=== PATIENT | female | born 1950 | race Caucasian/White ===

== ENCOUNTER 2016-05-21 22:01 | Emergency (ER) | payer MEDICARE ==
[~2016-05-21] VITALS: Ht 165.1 cm; Wt 82.4 kg
[2016-05-21 22:14] VITALS: BP 184/142; PULSE 104; RESP 20; TEMP 98.1
[2016-05-21] MEDS ORDERED: SILVER NITR/POTASSIUM NITRATE APPLICATORS TOPICAL ONE (22:45)
--- NOTE | 2016-05-21 22:45 | PD ---
HPI Chief Complaint: Nosebleed Time Seen by Provider: 22:44 Travel History International Travel<30 days: No Contact w/Intl Traveler<30days: No Traveled to known affect area: No History of Present Illness HPI 65-year-old female presents to the emergency department for sudden onset epistaxis from the right nostril just prior to arrival to the emergency department. Patient states that she was taking a shower and she stepped on a shard biopsy noticed blood on her hands and then noticed that she is having a nosebleed. Patient denies any trauma. No digital manipulation. Patient does have history of seasonal and environmental allergies but has not noted increased symptoms related to this condition this. Patient denies hypertension. Patient takes no blood thinning agents. No reported dizziness or syncope or syncope. No shortness of breath. No nausea or vomiting. PFSH Past Medical History Narrative Medical Environmental/seasonal allergies; tonsillectomy; tobacco use; nursing notes reviewed Diminished Hearing: No Immunizations Current: No Tetanus Vaccination: Unknown Influenza Vaccination: No ?: Not Past Surgical History Tonsillectomy: Yes Social History Alcohol Use: No Tobacco Use: Yes (1 ppd) Substance Use: No Allergies-Medications (Allergen,Severity, Reaction): Coded Allergies: No Known Allergies (Unverified , 05/21/16) Reported Meds & Prescriptions Reported Meds & Active Scripts Active No Active Prescriptions or Reported Medications Review of Systems Except as stated in HPI: all other systems reviewed are Neg General / Constitutional: No: Fever, Chills Eyes: No: Visual changes HENT: Positive: Nosebleed, No: Headaches, Congestion Cardiovascular: No: Chest Pain or Discomfort, Diaphoresis, Syncope Gastrointestinal: No: Nausea, Vomiting Genitourinary: No: Flank Pain Musculoskeletal: No: Pain Skin: No Rash Neurologic: No: Weakness Psychiatric: No: Anxiety Hematologic/Lymphatic: No: Easy Bruising Physical Exam Narrative GENERAL: Well-developed well-nourished female in no acute distress no respiratory distress with noted epistaxis. SKIN: Warm and dry. HEAD: Normocephalic. EYES: No scleral icterus. No injection or drainage. ENT: Mucous membranes moist airway is patent blood is noted down the posterior pharynx; there is fresh blood and clots in the right nostril with small area of blood noted seeping from the nasal septum with some minor injection; left nostril with scant overflow blood. NECK: Supple, trachea midline. No JVD or lymphadenopathy. CARDIOVASCULAR: Regular rate and rhythm without murmurs, gallops, or rubs. RESPIRATORY: Breath sounds equal bilaterally. No accessory muscle use. GASTROINTESTINAL: Abdomen soft, non-tender, nondistended. MUSCULOSKELETAL: No cyanosis, or edema. BACK: Nontender without obvious deformity. No CVA tenderness. Data Data Last Documented VS Vital Signs Date Time Temp Pulse Resp B/P Pulse Ox O2 Delivery O2 Flow Rate FiO2 05/21/16 23:38 77 16 135/79 98 Room Air 05/21/16 22:14 98.1 Orders Silver Nitrate Applicators (Silver Nitra (05/21/16 22:45) Oxymetazoline 0.05% [place] (Afrin 0.0 (05/21/16 23:30) MDM Medical Decision Making Medical Screen Exam Complete: Yes Emergency Medical Condition: Yes Medical Record Reviewed: Yes Differential Diagnosis Epistaxis, sinusitis, hypertension, anemia, coagulopathy Narrative Course After direct visualization of the nostrils with nasal speculum silver nitrate is used to chemically cauterize the small area of bleeding at the right nasal septum this provided some hemostasis but further bleeding was noted and a 5.5 Rhino Rocket was inserted in the right nostril with 3.5 cc of inflation. Rhino Rocket has dislodged itself; reassessment some small ongoing epistaxis additional Rhino Rocket attempted however patient intolerant of device and this was removed. Afrin nasal spray 2 sprays to the right nostril one spray to the left nostril applied. Blood pressure has returned to normal. Patient without active nosebleed at this time. Patient observed at rest as well as with ambulation about the emergency department and doing normal activities such as washing and getting in and off of the exam stretcher without recurrent epistaxis. The exam of the nostril reveals no active blood and posterior pharynx has no active clot or bleeding identified. Epistaxis is resolved and patient stable for outpatient management. Diagnosis Primary Impression: Epistaxis Referrals: Ear / Nose / Throat Specialist call for appointment Primary Care Physician call for appointment Patient Instructions: General Instructions Additional Instructions: Increase fluid hydration Avoid hot foods and beverages for the next 12-24 hours Use cool mist vaporizer at bedside May use Afrin nasal decongestant spray 1 spray to each nostril as often as twice daily for up to 2-3 days avoid overuse to avoid rebound congestion Use saline nasal spray such as [place] to each nostril to keep mucous membranes moist Apply direct pressure and return to the emergency department for recurrent nosebleeds Return to the emergency department for any concerns or change in condition May take acetaminophen/Tylenol as needed for minor discomfort or for fever 100.4 F or greater; avoid nonsteroidal anti-inflammatory medications for the next 48- 72 hours such as ibuprofen/Advil/Motrin or Aleve/Naprosyn or aspirin Scripts No Active Prescriptions or Reported Meds Disposition: 01 DISCHARGE HOME Condition: Stable Starla Orona MD May 21, 2016 22:45
[2016-05-21 22:59] VITALS: BP 147/76; PULSE 78; RESP 18; O2SAT 97
[2016-05-21] MEDS ORDERED: OXYMETAZOLINE HCL 0.05% 15 ML NASAL SPRAY NASAL ONE (23:30)
[2016-05-21 23:38] VITALS: BP 135/79; PULSE 77; RESP 16; O2SAT 98
[2016-05-22 00:22] VITALS: BP 132/77
== END 2016-05-22 00:25 | disposition home or self-care (01) ==
LOC: PHED 22:01
DX: R04.0 Epistaxis (principal); J30.2 Other seasonal allergic rhinitis; F17.200 Nicotine dependence, unspecified, uncomplicated
CPT/HCPCS: 30901

== ENCOUNTER 2016-12-07 13:47 | Emergency (ER) | payer MEDICARE, OTHER ==
[~2016-12-07] VITALS: Ht 165.1 cm; Wt 85.0 kg
[2016-12-07 13:53] VITALS: BP 163/70; PULSE 81; RESP 16; TEMP 98; O2SAT 95
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
[2016-12-07] MEDS ORDERED: ALLE4TAB7 PO (14:15)
[2016-12-07] MEDS ORDERED: FLUT1SPR5 EACH NARE (14:16)
[2016-12-07] MEDS ORDERED: NAPR500T2 PO (14:16)
[2016-12-07] MEDS ORDERED: SODIUM CHLOR 0.9% 1000 ML INJ 1,000 ML IV ONE (14:45)
[2016-12-07] MEDS ORDERED: PROPOFOL 200 MG/20 ML AMP IV ONE (14:45)
[2016-12-07 15:08] VITALS: O2SAT 94
--- NOTE | 2016-12-07 15:21 | RADRPT ---
EXAM DATE/TIME: 12/07/2016 14:17 [facility] COMPARISON: No previous studies available for comparison. INDICATIONS : Left wrist pain post fall. MEDICAL HISTORY : None. SURGICAL HISTORY : None. ENCOUNTER: Initial ACUITY: 1 day PAIN SCORE: 10/10 LOCATION: Left entire wrist FINDINGS: There is evidence of an acute displaced comminuted fracture involving the left distal radius with inv olvement of the articular surface. There is also an acute displaced ulnar styloid process fracture. Degenerative changes are noted involving the first carpometacarpal joint. Degenerative changes are also noted involving the scaphotrapezium and scaphotrapezoid joints. CONCLUSION: 1. Acute displaced comminuted fracture involving the left distal radius with involvement of the artic ular surface. 2. Acute displaced ulnar styloid process fracture. 3. Degenerative changes involving the first carpometacarpal joint as well as the scaphotrapezium and scaphotrapezoid joints. Ike Pepper MD on December 07, 2016 at 15:14 Board Certified Radiologist. This report was verified electronically.
--- NOTE | 2016-12-07 15:30 | RADRPT ---
EXAM DATE/TIME: 12/07/2016 15:13 [facility] COMPARISON: WRIST LEFT LIMITED (AP & LAT), December 07, 2016, 14:17. INDICATIONS : Post reduction left wrist fracture MEDICAL HISTORY : None. SURGICAL HISTORY : None. ENCOUNTER: Initial ACUITY: 1 day PAIN SCORE: 5/10 LOCATION: Left wrist FINDINGS: Two view examination of the left wrist demonstrates placement of a cast. Postreduction views demonstr ate persistent fracture distal radius and ulnar styloid with improved alignment. Soft tissue swelling . CONCLUSION: Improved alignment of distal radius/ulnar fractures. Mykel Mena MD on December 07, 2016 at 15:26 Board Certified Radiologist. This report was verified electronically.
[2016-12-07] MEDS ORDERED: NORC5TAB PO (15:48)
[2016-12-07 16:00] VITALS: BP 125/71
== END 2016-12-07 16:10 | disposition home or self-care (01) ==
LOC: PHED 13:47
DX: S52.592A Other fractures of lower end of left radius, initial encounter for closed fracture (principal); S52.612A Displaced fracture of left ulna styloid process, initial encounter for closed fracture; V43.94XA Unspecified car occupant injured in collision with van in traffic accident, initial encounter
CPT/HCPCS: 25605; 73100; 94770; 96361; 96374; 99285; J7030

== ENCOUNTER 2016-12-08 07:44 | Observation (INO) | payer OTHER, MEDICARE ==
[~2016-12-08] VITALS: Ht 165.1 cm; Wt 86.3 kg
[~2016-12-08 07:44] MED LIST: ALLE4TAB7 PO; FLUT1SPR5 EACH NARE; NAPR500T2 PO; NORC5TAB PO
[2016-12-08] MEDS ORDERED: ceFAZolin 2 GM PREMIX 50 ML IV SCH (09:00)
[2016-12-08] MEDS ORDERED: METOPROLOL TARTRATE 25 MG TAB PO PRN (09:00)
[2016-12-08] MEDS ORDERED: POVIDONE IODINE 5% (ANTISEPSIS KIT) 4 APPLICATIONS EACH NARE PRN (09:00)
[2016-12-08] MEDS ORDERED: SODIUM CHLORID 0.9% 500 ML IV PRN (09:00)
[2016-12-08] MEDS ORDERED: INSULIN HUMAN REGULAR 1,000 UNITS/10 ML VIAL SQ PRN (09:00)
[2016-12-08] MEDS ORDERED: CHLORHEXIDINE GLUCONATE 2 % 1 PACK (2 CLOTHS) TOPICAL PRN (09:00)
[2016-12-08] MEDS ORDERED: POVIDONE IODINE 7.5% SCRUB 118 ML BOTTLE TOPICAL SCH (09:00)
[2016-12-08] MEDS ORDERED: LACTATED RINGER'S 1000 ML IV PRN (09:00)
[2016-12-08] MEDS ORDERED: GENTAMICIN SULFATE 80 MG/2 ML VIAL ONE (09:53)
[2016-12-08] MEDS ORDERED: BUPIVACAINE/EPINEPHRINE 0.5% PF 10 ML VIAL ONE (10:42)
[2016-12-08] MEDS ORDERED: HYDROmorphone HCL PF 2 MG/ML VIAL ONE (11:29)
[2016-12-08] MEDS ORDERED: ROCURONIUM INJ 50 MG/5 ML SYRINGE IV PUSH ONE (12:00)
[2016-12-08] MEDS ORDERED: PROPOFOL 200 MG/20 ML AMP IV ONE (12:00)
[2016-12-08] MEDS ORDERED: LIDOCAINE HCL 1% PF 5 ML AMPULE OTHER ONE (12:00)
[2016-12-08] MEDS ORDERED: MIDAZOLAM HCL 2 MG/2 ML VIAL IV ONE (12:00)
[2016-12-08] MEDS: LACTATED RINGER'S 1000 ML INJ 1,000 ML IV SCH (12:46)
--- NOTE | 2016-12-08 12:49 | PD.OP ---
cc: Ortiz Flores MD Operative Report Date of Surgery: Dec 08, 2016 Preoperative Diagnosis: Fracture left distal radius, comminuted, intra-articular, 4 to 5 part Postoperative Diagnosis: Same Procedure: Open treatment internal fixation with extended volar plate left distal radius with distal and proximal locking screws Anesthesia: Gen. Surgeon: Ortiz Flores Men'S Golf Coach(s): LEONILA Smith Operation and Findings: EBL: 50 cc INDICATION: This patient is a 66-year-old female who sustained the above fracture yesterday. She has a comminuted metaphyseal and distal radius fracture involving the articular surface. Investigative studies are consistent with the same. She presents for surgical treatment. NOTE: Karuna Smith PA-C was present for the entire surgical procedure as my first dyer. In my medical opinion her skill and care was necessary for proper management of this patient. PROCEDURE: The patient was brought to the operating room and anesthetized in the supine position. This patient was positioned with the arm on the arm table. Fluoroscopy was used for visualization. A timeout was done. Antibiotics were given within 1 hour time window. The left arm was scrubbed with alcohol followed by Hibiclens followed by ChloraPrep and draped sterilely. A tourniquet was placed after exsanguination the tourniquet was inflated to 250 mmHg. A volar incision was made along the flexor carpi radialis tendon. The pronator quadratus was lifted from its radial attachment. The fracture was visualized. This was brought into a reduced position and held. A volar plate was positioned and held provisionally. Intraoperative x-ray showed anatomic alignment. Multiple distal locking screws were placed as well as shaft screws. The fracture was reduced anatomically. Intraoperative x-rays were obtained confirming the same. The tourniquet was let down. Hemostasis was controlled with the bipolar cautery. The wound was dry. The fascia was closed with 2-0 Vicryl suture. The skin and subcutaneous tissue was approximated with interrupted 3-0 nylon in a mattress fashion. A sterile dressing and a splint was applied. The patient was awakened and taken to the recovery room in satisfactory condition. COMPANY: [facility] Ortiz Flores MD Dec 08, 2016 12:49
[2016-12-08] MEDS ORDERED: DO NOT ADM ANY ANTICOAGULANT DRUGS PRN (12:55)
[2016-12-08] MEDS ORDERED: ACETAMINOPHEN/HYDROcodone 325 MG/5 MG TAB PO PRN ×2 (13:00)
[2016-12-08] MEDS ORDERED: SODIUM CHLORIDE 0.9% FLUSH 5 ML FLUSH IVF PRN (13:00)
[2016-12-08] MEDS ORDERED: ONDANSETRON HCL 4 MG/2 ML VIAL IV PUSH PRN (13:00)
[2016-12-08] MEDS ORDERED: ZOLPIDEM TARTRATE 5 MG TAB PO PRN (13:00)
[2016-12-08] MEDS ORDERED: MORPHINE SULFATE 8 MG/ML INJ IM PRN (13:00)
--- NOTE | 2016-12-08 13:20 | EKG ---
Date Performed: 12/08/2016 Time Performed: 08:30:33 PTAGE: 66 years EKG: Sinus rhythm LEFT BUNDLE BRANCH BLOCK ABNORMAL ECG NO PREVIOUS TRACING DOCTOR: Lacho Ramirez Interpretating Date/Time 12/08/2016 13:15:51
[2016-12-08] MEDS ORDERED: *ONDANSETRON 4 MG VIAL PERIprocedural Use ONLY ONE (13:37)
--- NOTE | 2016-12-08 14:07 | RADRPT ---
EXAM DATE/TIME: 12/08/2016 12:13 [facility] COMPARISON: WRIST LEFT LIMITED (AP & LAT), December 07, 2016, 15:13. INDICATIONS : ORIF left wrist. MEDICAL HISTORY : None. SURGICAL HISTORY : None. ENCOUNTER: Initial ACUITY: 1 day PAIN SCORE: Non-responsive. LOCATION: Left wrist FINDINGS: Status post internal fixation for fractures of the distal radius. There is good position and alignmen t of the fracture fragments. The hardware is intact. There is good alignment at the radiocarpal joint . There is a fracture involving the ulnar styloid process. CONCLUSION: Good position and alignment on this postoperative study. Maximino Aguilera MD on December 08, 2016 at 14:05 Board Certified Radiologist. This report was verified electronically.
[2016-12-08 15:00] VITALS: BP 152/74; PULSE 72; RESP 16; TEMP 96.2; O2SAT 95
[2016-12-08 19:00] VITALS: BP 121/70; PULSE 85; RESP 16; TEMP 97.9; O2SAT 95
[2016-12-08] MEDS: DOCUSATE SODIUM 100 MG CAP PO SCH (21:00)
--- NOTE | 2016-12-08 22:38 | HHI.DCPOC ---
Discharge Care Plan Diagnosis: (1) Closed fracture of left distal radius Your Health Problems Are: Incision/Drains Swelling Goals to Promote Your Health * To prevent worsening of your condition and complications * To maintain your health at the optimal level Directions to Meet Your Goals Take your medications as prescribed Follow your dietary instruction Follow activity as directed Keep your appointments as scheduled Take your immunizations and boosters as scheduled If your symptoms worsen call your PCP, if no PCP go to Urgent Care Center or Emergency Room Smoking is Dangerous to Your Health. Avoid second hand smoke Call the 24-hour hour crisis hotline for domestic abuse at Delfina Polanco Dec 08, 2016 22:38
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
[2016-12-08] MEDS: SODIUM CHLORIDE 0.9% FLUSH 5 ML FLUSH IVF SCH (22:41)
[2016-12-08 23:55] VITALS: BP 133/71; PULSE 78; RESP 16; TEMP 97.8; O2SAT 93
[2016-12-09] MEDS: LACTATED RINGER'S 1000 ML INJ 1,000 ML IV SCH (03:04)
[2016-12-09 04:00] VITALS: BP 177/82; PULSE 92; RESP 17; TEMP 99; O2SAT 94
[2016-12-09] MEDS ORDERED: ACETAMINOPHEN 325 MG TAB PO PRN (05:00)
[2016-12-09] MEDS ORDERED: HYDR-3516 PO (07:49)
[2016-12-09] MEDS: DOCUSATE SODIUM 100 MG CAP PO SCH (07:49)
--- NOTE | 2016-12-09 07:52 | PD.ORT.PN ---
Subjective Subjective Remarks Doing well today. She has some aching and burning left forearm but states this is tolerable. She has some swelling of the fingers. She has many questions about activity but desires to go home today. Objective Vitals Vital Signs Date Time Temp Pulse Resp B/P (MAP) Pulse Ox O2 Delivery O2 Flow Rate FiO2 12/09/16 04:00 99.0 92 17 177/82 (113) 94 12/08/16 23:55 97.8 78 16 133/71 (91) 93 12/08/16 19:00 97.9 85 16 121/70 (87) 95 12/08/16 15:00 96.2 72 16 152/74 (100) 95 12/08/16 14:42 Nasal Cannula 2.00 12/08/16 14:00 73 13 144/62 (89) 97 Nasal Cannula 3 12/08/16 13:44 81 15 156/72 (100) 97 Nasal Cannula 3 12/08/16 13:30 79 13 162/72 (102) 97 Nasal Cannula 3 12/08/16 13:15 79 12 160/68 (98) 95 Nasal Cannula 3 12/08/16 13:00 85 12 129/59 (82) 96 Nasal Cannula 3 12/08/16 12:54 97.7 96 17 171/84 (113) 96 Nasal Cannula 3 12/08/16 08:38 98.0 75 18 124/76 (92) 95 I/O 12/08/16 12/08/16 12/08/16 12/09/16 12/09/16 12/09/16 07:00 15:00 23:00 07:00 15:00 23:00 Intake Total 1400 ml 720 ml 240 ml Output Total 20 ml Balance 1380 ml 720 ml 240 ml Intake Oral 720 ml 240 ml Other 1400 ml Output Estimated Blood Loss 20 ml # Voids 2 2 # Bowel Movements 0 0 Procedures Open treatment internal fixation left distal radius fracture Objective Remarks Sitting up in bed Family at bedside NAD VSS LUE In sling and splint, no obvious drainage, mild swelling distal into fingers +library media assistant, +nvi, cap refill less than 2 secs Assessment & Plan Ortho Post Op Day #: 1 Problem List: (1) Closed fracture of left distal radius ICD Codes: S52.502A - Unspecified fracture of the lower end of left radius, initial encounter for closed fracture Assessment and Plan pod#1 s/p ORIF left distal radius Ortho stable. Ok to d/c home today. Continue splint. Keep sealed and dry. Sling for comfort. PO pain meds as needed. Wrote order but pt states she has a script at home from ER Ice and elevate daily F/U in 2-3 weeks as scheduled. Delfina Polanco Dec 09, 2016 07:52
[2016-12-09 08:00] VITALS: BP 133/70; PULSE 80; RESP 17; TEMP 97.9; O2SAT 95
[2016-12-09] MEDS: SODIUM CHLORIDE 0.9% FLUSH 5 ML FLUSH IVF SCH (09:00)
[2016-12-09] MEDS ORDERED: ROCURONIUM INJ 50 MG/5 ML VIAL IV ONE (12:01)
[2016-12-09] MEDS ORDERED: MIDAZOLAM HCL 2 MG/2 ML VIAL IV ONE (12:01)
[2016-12-09] MEDS ORDERED: PROPOFOL 200 MG/20 ML AMP IV ONE (12:01)
[2016-12-09] MEDS ORDERED: LIDOCAINE HCL 1% PF 5 ML AMPULE OTHER ONE (12:01)
== END 2016-12-09 09:48 | disposition home or self-care (01) ==
LOC: HSDC 07:44 → INTOOBSV 12:47 → HSDI 12:47 → N06B 14:22
PROVIDERS: ADMIT Orthopaedic Surgery Orthopaedic Surgery of the Spine; ATTEND Orthopaedic Surgery Orthopaedic Surgery of the Spine
DX: S52.572A Other intraarticular fracture of lower end of left radius, initial encounter for closed fracture (principal); I44.7 Left bundle-branch block, unspecified
CPT/HCPCS: 01830; 25608; 73100; 76000; 93005; C1713; G0378; J0690; J1580; J2250; J2405; J3010; J7120; J1170